=== PATIENT | female | born 1960 | race Caucasian/White ===

== ENCOUNTER → 2022-07-22 11:21 | Outpatient (BNVA) | payer OTHER, SELFPAY | PROVIDERS: Visit Provider Internal Medicine | DX: S09.90XA Unspecified injury of head, initial encounter (principal); W23.1XXA Caught, crushed, jammed, or pinched between stationary objects, initial encounter; W18.39XA Other fall on same level, initial encounter | CPT/HCPCS: 70450; 99204 ==

== ENCOUNTER 2024-01-31 15:00 | Outpatient (RCR) | payer BC, SELFPAY | END 2024-08-07 10:59 | disposition home or self-care (01) | LOC: HO.PTCHIC 15:00 | PROVIDERS: PCP Physician Assistant; Visit Provider Physician Assistant | DX: M54.41 Lumbago with sciatica, right side (principal) | CPT/HCPCS: 97014; 97110; 97140; 97161 ==

== ENCOUNTER 2024-04-16 14:13 | Outpatient (AMB) | payer OTHER, SELFPAY ==
--- NOTE | 2024-04-16 14:34 | AM.OFFWIN_ITS ---
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 Patient states she was treated in December at [facility] for this same symptoms but was unable to follow-up secondary to her work place schedule and the symptoms have recurred. Patient went to [facility] yesterday however there was not a dentist on site for evaluation. Patient denies having any fevers, chills or hyperglycemia. [facility] Social History Patient Tobacco Use Status: Never used Tobacco Review of Systems Const Denies chills and Denies fever(s) Eyes Reports no additional complaints ENT Reports mouth pain (dental pain left upper dentition) Card Reports no additional complaints Resp Reports no additional complaints GI Reports no additional complaints Reports no additional complaints Musc Reports no additional complaints Skin/Breast Reports system reviewed and no additional complaints, except as documented Neuro Reports no additional complaints Psych Reports no additional complaints Physical Exam Vital Signs: Last Vital Signs Temp 97.9 F 04/16/24 14:41 Pulse 72 04/16/24 14:41 BP 122/78 04/16/24 14:41 Pulse Ox 98 04/16/24 14:41 BMI result Body Mass Index 47.5 Patient is afebrile. Const General: cooperative, well developed, alert, awake and Physically active Nutritional Appearance: overweight Orientation/consciousness: patient oriented x3 Limitations: no limitations HEENT Head: Yes normal to inspection Ears: hearing grossly normal bilaterally, external ears normal, TM's normal bilaterally and EAC's normal Face and sinus: No normal facial exam, Yes edema (left malar region of the face; no erythema) and No fluctuance Mouth: abnormal oral mucosae (edema of the left upper gingivae, buccal surface; no edema lingual aspect), lip normal, tongue normal and no drooling Teeth and gingiva: abnormal gingiva and gingiva abnormal edematous, tender and discolored (erythematous, edematous, l. upper buccal aspect); without any purulent discharge Throat: Yes posterior oropharynx normal Neuro General: patient oriented x3 Psych Appearance: grossly normal Mental Status: mental status grossly normal Insight: Good insight present (Psych) Judgement: Good judgement present (Psych) Assessment & Plan Assessment & Plan (1) Gingivitis: Comment: Given this patient's history she likely has a deep dental abscess that has recurred and will be prescribed antibiotic therapy. Code(s): K05.10 - Chronic gingivitis, plaque induced Plan: Patient is to follow up with a dentist as soon as possible, utilize Tylenol for discomfort and clindamycin as prescribed. Medications: New clindamycin HCl 600 mg (2 x 300 mg) PO TID 60 caps 0RF Coding Level of Care Code New Pt Level 3 (41002) Diagnoses Gingivitis K05.10 Time Spent (min) 20
[2024-04-16 14:41] VITALS: BP 122/78; PULSE 72; TEMP 36.6; O2SAT 98; BMI 47.5
== END 2024-04-16 15:58 | disposition home or self-care (01) ==
PROVIDERS: PCP Physician Assistant; Visit Provider Physician Assistant
DX: K05.10 Chronic gingivitis, plaque induced (principal)
CPT/HCPCS: 99203

== ENCOUNTER 2025-03-10 06:15 | Day surgery (SDC) | payer MEDICARE, SELFPAY ==
--- OUTSIDE RECORDS SUMMARY | 2025-02-12 15:21 | XMS_ITS | Clinical Summary ---
Author Organization [employer] Address [address] [place] [address] Care Team Providers Care Brim Stretcher Name Role Phone Unavailable Primary Care Provider Unavailabl e Immunizations Immunization Administration Dates Next Due Moderna Covid-19 Vaccine 6+ Bivalent 10/19/2022 Social History Tobacco Use Types Packs/Day Years Used Date Smoking Tobacco: Never Assessed Comments Unknown Sex and Gender Information Value Date Recorded Sex Assigned at Female 08/01/2022 10:37 AM EDT Legal Sex Female 10:37 AM EDT Gender Identity Choose not to disclose 10:37 AM EDT Sexual Orientation Choose not to disclose 2021 10:37 AM EDT Plan of Treatment Health Maintenance Due Date Last Done Comments CT Colonography 1960 Colonoscopy 1960 Colorectal Cancer Screening 1960 Depression Screening 1960 FIT DNA/Cologuard 1960 FIT 1960 FOBT 1960 Sigmoidoscopy 1960 Alcohol/Substance Use Screening 1972 Tobacco Screening 1972 Pap Smear 01/10/1981 Cervical Cancer Screening 01/10/1990 HPV/Cotest 01/10/1990 Mammogram 2000 Pneumococcal Vaccine: 50+ Years (1 of 1 - PCV) 01/10/2010 Zoster Vaccines (1 of 2) 01/10/2010 COVID-19 Vaccine (5 - season) 2024 10/19/2022, 09/03/2021, 10/26/2020, Additional history exists Influenza Vaccine (#1) 2024 2, 06/17/2021, 07/08/2020, Additional history exists DTaP/Tdap/Td Vaccines (2 - Td or Tdap) 12/12/2027 12/11/2017 RSV Patients and Patients Aged 60 years or older (1 - 1-dose 75+ series) 01/10/2035 HIB Vaccines Aged Out No longer eligi ble based on patient's age to complete this topic HPV Vaccines Aged Out No longer eligi ble based on patient's age to complete this topic Hepatitis A Vaccines Aged Out No long er eligible based on patient's age to complete this topic Hepatitis B Vaccines Aged Out No long er eligible based on patient's age to complete this topic IPV Vaccines Aged Out No longer eligi ble based on patient's age to complete this topic Meningococcal Vaccine Aged Out No stacey hans eligible based on patient's age to complete this topic Pneumococcal Vaccine: Pediatrics (0 to 5 Years) and At-Risk Patients (6 to 49) Years) Aged Out No longer eligible based on patient's age to complete this topic RSV under 20 months Aged Out No longe r eligible based on patient's age to complete this topic Rotavirus Vaccines Aged Out No longer eligible based on patient's age to complete this topic
--- OUTSIDE RECORDS SUMMARY | 2025-02-12 15:21 | XMS_ITS | Encounter Summary ---
Author Organization [facility] Address [address] [place] [address] Phone Care Team Providers Care Die Out Worker Name Role Phone Rashmi Gallegos PA-C Primary Care Provider + Encounter Details Date Type Department Care Team (Late st Contact Info) Description 11/13/2024 Documentation Only [facility] [address] [place] [address] [place], [place] [address] [place] [address] Social History Tobacco Use Types Packs/Day Years Used Date Smoking Tobacco: Never Assessed Comments Unknown Sex and Gender Information Value Date Recorded Sex Assigned at Not on file Legal Sex Female 10:41 AM EST Gender Identity Not on file Sexual Orientation Not on file documented as of this encounter Plan of Treatment Upcoming Encounters Date Type Department Care Team (Late st Contact Info) Description 03/24/2025 4:00 PM EDT Office Visit [facility] [address] [place] [address] Vitaliy Perrin MD [address] [place] [address] [place] [phone] documented as of this encounter Visit Diagnoses Not on filedocumented in this encounter Care Teams Die Out Worker Relationship Specialty Start Date End Date Rashmi Gallegos PA-C [address] [place] [address] PCP - General Physician Knitted Garment Finisher 10/22/24 documented as of this encounter
--- OUTSIDE RECORDS SUMMARY | 2025-02-12 15:21 | XMS_ITS | Clinical Summary ---
Author Organization [facility] Address [address] [place] [address] Phone Care Team Providers Care Chef Broiler Or Fry Name Role Phone Rashmi Gallegos PA-C Primary Care Provider + Social History Tobacco Use Types Packs/Day Years Used Date Smoking Tobacco: Never Assessed Comments Unknown Sex and Gender Information Value Date Recorded Sex Assigned at Not on file Legal Sex Female 10:41 AM EST Gender Identity Not on file Sexual Orientation Not on file Plan of Treatment Upcoming Encounters Date Type Department Care Team (Late st Contact Info) Description 03/24/2025 4:00 PM EDT Office Visit [facility] [place], [address] [address] Vitaliy Perrin MD [address] [facility] [place] [address] Health Maintenance Due Date Last Done Comments Breast Cancer Screening 1960 Pneumococcal Vaccine: 50+ Ye ars (1 of 2 - PCV) 01/10/1979 Colorectal Cancer Screening: Annual FOBT 01/10/2009 Colorectal Cancer Screening: Colonoscopy 01/10/2009 Colorectal Cancer Screening: Sigmoidoscopy 01/10/2009 Diabetes: Hemoglobin A1C 11/11/2024 Diabetes: Ophthalmology Exam 11/11/2024 Diabetes: Pedal Pulse Checked 11/11/2024 Diabetes: Sensory Foot Exam 11/11/2024 Diabetes: Visual Foot Exam 11/11/2024 Influenza Vaccine (Season Ended) 2025 Hepatitis B Vaccine Aged Out No longe r eligible based on patient's age to complete this topic [facility] [place] [address] [facility] Care Teams Chef Broiler Or Fry Relationship Specialty Start Date End Date Rashmi Gallegos PA-C [address] [place] [address] PCP - General Physician Wax Pourer 10/22/24
--- OUTSIDE RECORDS SUMMARY | 2025-02-12 15:21 | XMS_ITS ---
Author Organization [facility] Care Team Providers Care Histology Manager Name Role Phone Thomas Steventh Unavailable Unavailable Any Pak Unavailable Unavailable Trudy Quinonez Unavailable Unavailable Allergies and adverse reactions Code CodeSystem Substance Reaction Severity StartDate Concern Status 535417923 SNOMED CT Penicillins Unknown 12/25/2020 activ e Care Team Name Role Address Phone Organization Dates Any Pak PCP [address] [facility], [place], [address], [facility] (Office): [facility] 12/25/2020 - 01/18/2021 Edith Steven [address], [address], [facility] (Office): [facility] 12/25/2020 - 01/18/2021 Trudy Quinonez [address] [facility] [address] [place] [address], [address], [facility] (Office): [facility] 12/25/2020 - 01/18/2021 Immunizations Immunization Status Vaccine Details Vaccine Code CodeSystem Jamison e Notes Influenza completed Influenza, split virus, trivalent, injectable, contains preservative 141 CVX created date: 12/28/2020 administered date: 09/13/2017 SARS-COV-2 (COVID-19) completed SARS-COV-2 (COVID-19) vaccine, mRNA, spike protein, LNP, preservative free, lorie-sucrose, 30 mcg/0.3 mL dose Step 2 of Multi-step with next step required 309 CVX created date: 01/04/2021 administered date: 10/26/2020 SARS-COV-2 (COVID-19) completed SARS-COV-2 (COVID-19) vaccine, mRNA, spike protein, LNP, preservative free, lorie-sucrose, 30 mcg/0.3 mL dose Step 1 of Multi-step with next step required 309 CVX created date: 12/28/2020 administered date: 09/28/2020 Mental Status Section Date Assessment Total Score Description 01/18/2021 BIMS 15 cognitively int act CAM 0 No delirium ind icated PHQ-9 03 minimal depress ion 12/31/2020 BIMS 15 cognitively int act CAM 0 No delirium ind icated PHQ-9 03 minimal depress ion Problems Problem # Description Date of onset Resolved Date Code CodeSystem Concern Status 1 DIFFICULTY IN WALKING, NOT ELSEWHERE CLASSIFIED 12/25/[address] active 2 DORSALGIA, UNSPECIFIED 12/25/[address] active 3 ESSENTIAL (PRIMARY) HYPERTENSION 12/25/[address] active 4 HYPERLIPIDEMIA, UNSPECIFIED 12/25/[address] active 5 LOW BACK PAIN 12/25/[address] act sanju 6 MUSCLE WEAKNESS (GENERALIZED) 12/25/[address] active 7 OTHER HYPERLIPIDEMIA 12/25/[address] active 8 OTHER SYMPTOMS AND SIGNS INVOLVING THE MUSCULOSKELETAL SYSTEM 12/25/[address] active 9 SCIATICA, UNSPECIFIED SIDE 12/25/[address] active 10 SPINAL STENOSIS, SITE UNSPECIFIED 12/25/[address] active 11 TYPE 2 DIABETES MELLITUS WITHOUT COMPLICATIONS 12/25/[address] active Reason for Referral No Reasons for Referral Entered Social History Social History Observation Description Start Date End Date Code Code System Current Smoking Status Tobacco smoking consumption unknown 020079215 SNOMED CT Sex Assigned At Female 1960 [address]92-5 [facility] Gender Identity Vital Signs Code Code System Vitals Name Values and Units Timing Information 2339-0 [facility] Blood Sugar Gfkmm=658.0 Units=mg/dL 01/18/2021 58271-1 [facility] Pain Level Value=0.0 01/18/2021 9279-1 [facility] Respiratory Rate Value=20.0 Units=/m in 01/18/2021 8462-4 [facility] Blood Pressure-Diastolic Value=64 Un its=mmHg 01/18/2021 8480-6 [facility] Blood Pressure-Systolic Moala=295 Un its=mmHg 01/18/2021 8310-5 [facility] Body Temperature Value=96.1 Units=?? F 01/18/2021 8867-4 [facility] Heart rate Value=81.0 Units=/min 46933-5 [facility] O2 % BldC Oximetry Value=95.0 Units= % 01/18/2021 51906-3 [facility] Weight Aletw=324.2 Units=Lbs 8302-2 [facility] Height Value=66.0 Units=Inches 12/25/2020
--- OUTSIDE RECORDS SUMMARY | 2025-02-12 15:21 | XMS_ITS | Clinical Summary ---
Author Organization [facility] Address [address] [place] [address] Care Team Providers Care Solar Installation Helper Name Role Phone Jade Basilio MD Primary Care Provider Social History Tobacco Use Types Packs/Day Years Used Date Smoking Tobacco: Never Assessed Sex and Gender Information Value Date Recorded Sex Assigned at Not on file Gender Identity Not on file Sexual Orientation Not on file Plan of Treatment Health Maintenance Due Date Last Done Comments Hepatitis C Screening 1960 COVID-19 Vaccine (#1) 1960 Depression Screening 1972 Preventative Health Evaluation 01/10/1978 DTap / Tdap / Td (1 - Tdap) 01/10/1979 Cervical Cancer Screening (P ap Smear) 01/10/1981 Colon Cancer Screening (Colonoscopy) 01/10/2005 Breast Cancer Screening (Mammogram) 01/10/2010 Shingrix-Zoster Vaccine (1 of 2) 01/10/2010 Influenza Vaccine (#1) 2024 Fall Risk Assessment 01/10/2025 Osteoporosis Screening (DEXA Scan) 01/10/2025 Pneumococcal Vaccine (1 of 1 - PCV) 01/10/2025 RSV Adult > 60+ Yrs or Pregn ant (1 - 1-dose 75+ series) 01/10/2035 Hepatitis B Vaccines Aged Out No long er eligible based on patient's age to complete this topic Pneumococcal Vaccine Aged Out No long er eligible based on patient's age to complete this topic RSV Ped < 20 months Aged Out No longe r eligible based on patient's age to complete this topic Care Teams Solar Installation Helper Relationship Specialty Start Date End Date Jade Basilio MD [address] [place] [address] PCP - General Internal Medicine 03/29/21
--- OUTSIDE RECORDS SUMMARY | 2025-02-12 15:21 | XMS_ITS | Patient Health Record ---
Author Organization [facility] Address [address] [place] [address] Care Team Providers Care Logistics Coordinator Name Role Phone Elio Bustos PA-C Primary Care Provider Jarrett Mclaughlin Unavailable [phone] Allergies Allergen (clinical drug ingredient) Drug/Non Drug Allergy documented on EMR Reaction Allergy Type Onset Date Status Penicillin Unknown Drug Allergy Active losartan Losartan Unknown Drug Allergy Active lisinopril Lisinopril Unknown Drug Allergy Activ e Reason For Referral No Information Medications Medication SIG (Take, Route, Frequency, Duration) Notes Start Date End Date Status Pregabalin 75 MG TAKE 1 CAPSULE BY MO UTH TWICE DAILY Oral for 90 Active metFORMIN HCl 1000 MG TAKE 1 TABLET BY M OUTH WITH A MEAL TWICE DAILY Oral for 90 E1140,Unavail able Active Mounjaro 7.5 MG/0.5ML INJECT 7.5 MG SUBCUTANEOUSLY ONCE EVERY 7 DAYS Subcutaneous for 28 E1142,Unavail able Active Metoprolol Succinate ER 25 MG Oral for 90 Active Albuterol Sulfate HFA 108 (90 Base) MCG/ACT INHALE 2 PUFFS BY MOUTH EVERY 4 HOURS NEEDED Inhalation for 17 Active HumaLOG Mix 75/25 KwikPen (75-25) 100 UNIT/ML INJECT 30 UNITS SUBCUTANEOUSLY IN THE MORNING AND 20 UNITS SUBCUTANEOUSLY IN THE EVENING BEFORE MEALS Subcutaneous for 90 E1142,Unavail able Active Rosuvastatin Calcium 10 MG TAKE 1 TABLET BY MOUTH ONCE DAILY Oral for 90 Active Levothyroxine Sodium 112 MCG TAKE 1 TABLET BY MOUTH IN THE MORNING ON AN EMPTY STOMACH Oral for 90 E039,Unavaila ble Active Immunizations Vaccine Route Administration Date Status Comme nts Influenza Unknown 07/23/2024 Administered Social History Tobacco Use: Social History Observation Description Date Details (start date - stop date) Never Smoker NA - NA Tobacco Use/Smoking Question Answer Notes Patient is a nonsmoker Alcohol Screen Question Answer Notes Did you have a drink containing alcohol in the p ast year? No Points 0 Interpretation Negative Section Notes: Nonsmoker; no sig alcohol Problems Problem Type SNOMED Code ICD Code Onset Dates Problem Status W/U Status Risk Notes Problem Colon cancer screening (Z12.11) Active confirmed Problem Pre-procedure evaluation check (574859212) Encounter for other preprocedural examination (Z01.818) Active confirmed Vital Signs Temperature 97.1 degrees Fahrenheit 11/15/2024 Blood pressure diastolic 00 mm Hg 11/15/2024 Height 5 ft 5 in in 11/15/2024 Blood pressure systolic 000 mm Hg 11/15/2024 Weight 300 lb 4 oz lbs 11/15/2024 BMI 49.96 kg/m2 11/15/2024 Encounters Encounter Location Date Provider Diagnosis [facility] [address] [place] [address] 11/15/2024 Jarrett Javier Colon cancer screeni ng Z12.11 and Encounter for other preprocedural examination Z01.818 Assessments Encounter Date Diagnosis (ICD Code) Assessment Notes Treatment Notes Treatment Clinical Notes Section Notes 11/15/2024 Colon cancer screening (ICD-10 - Z12.11) DO NOT TAKE THE MOUNJARO FOR AT LEAST 7 DAYS BEFORE THE COLONOSCOPY DO NOT TAKE THE METFORMIN THE NIGHT BEFORE OR ON THE MORNING OF THE COLONOSCOPY STOP ASPIRIN AND ALEVE FOR 1 WEEK BEFORE THE COLONOSCOPY DO NOT TAKE FUROSEMIDE THE DAY BEFORE NOR ON THE DAY OF THE COLONOSCOPY ASK DR. BIRD HOW TO ADJUST INSULIN FOR THE DAY BEFORE AND ON THE DAY OF THE PROCEDURES 11/15/2024 Encounter for other preprocedural examination (ICD-10 - Z01.818) Plan Of Treatment Future Test Test Name Order Date COLONOSCOPY 11/15/2024 Next Appt Details Provider Name:Jarrett Hamlin Javier , 03/10/2025 07:30:00 AM, [address] [facility] , [place], [id number], Insurance Providers Payer Name Payer Address Payer Phone Subscriber Number Group Number Insured Name Patient Relationship to Insured Coverage Start Date Coverage End Date [facility] [address] [place] [address] [phone] [id number] LORIN JOSEPH Self - patient is the insured Medical (General) History Medical History History ICD Code Seasonal allergies Asthma Hyperlipidemia IDDM Colonoscopy age 50 with removal of 1smal l polyp Denies IA,CVA,Renal disease HTN Sciatica Surgical History Surgery Date(Month/Year) [facility] Tonsils/adenoids removed Anal fissures and hemorrhoidectomy 2013 Trigger point injection Back surgery [facility] 2020 Blepharoplasty 09/2022 Pilonidal cyst
--- OUTSIDE RECORDS SUMMARY | 2025-02-12 15:21 | XMS_ITS ---
Author Organization [facility] Address [address] [place] [address] Care Team Providers Care Javascript Engineer Name Role Phone Elio Bustos PA-C Primary Care Provider Jarrett Mclaughlin Unavailable [phone] Allergies Allergen (clinical drug ingredient) Drug/Non Drug Allergy documented on EMR Reaction Allergy Type Onset Date Status Penicillin Unknown Drug Allergy Active losartan Losartan Unknown Drug Allergy Active lisinopril Lisinopril Unknown Drug Allergy Activ e REASON FOR VISIT Patient presents today for a colon screening Medications Medication SIG (Take, Route, Frequency, Duration) Notes Start Date End Date Status Metoprolol Succinate ER 25 MG Oral for [...] STOMACH Oral for 90 E039,Unavaila ble Active Pregabalin 75 MG TAKE 1 CAPSULE BY MO UTH TWICE DAILY Oral for 90 Active metFORMIN HCl 1000 MG TAKE 1 TABLET BY M OUTH WITH A MEAL TWICE DAILY Oral for 90 E1140,Unavail able Active Mounjaro 7.5 MG/0.5ML INJECT 7.5 MG SUBCUTANEOUSLY ONCE EVERY 7 DAYS Subcutaneous for 28 E1142,Unavail able Active Social History Tobacco Use: Social History Observation [...] (Z12.11) Active confirmed Problem Pre-procedure evaluation check ([id number]) Encounter for other preprocedural examination (Z01.818) Active confirmed Vital Signs Temperature 97.1 degrees Fahrenheit 11/15/19 25 Blood pressure systolic 000 mm Hg 11/15/19 25 Blood pressure diastolic 00 mm Hg 025 Height 5 ft 5 in in 11/15/2024 Weight 300 lb 4 oz lbs 11/15/2024 BMI 49.96 kg/m2 11/15/2024 Encounters Encounter Location Date Provider Diagnosis [facility] [address] [place] [address] 11/15/2024 Jarrett Herrera Colon cancer screeni ng Z12.11 and Encounter [...] examination (ICD-10 - Z01.818) Plan Of Treatment Treatment Notes Assessment Notes Colon cancer screening DO NOT TAKE THE MOUNJARO FOR AT [...] AND ON THE DAY OF THE PROCEDURES Future Test Test Name Order Date COLONOSCOPY 11/15/2024 Next Appt Details Follow Up: prn, Reason: Provider Name:Jarrett Hamlin Javier , 03/10/2025 07:30:00 AM, [address] [place] [address] , [place], [place], [id number], Progress Notes * BARRETT JOSEPHEDOB:1959 (64 yo F)Acc No.[id number]:11/15/2024 Progress Notes Patient:?LORIN JOSEPH Provider:?Jarrett Herrera MD :1960???Age:64 Y???Sex:Female D ate:11/15/2024 Address:[address] [place], [place] [id number] Pcp:Elio Bustos PA-C Subjective: * Chief Complaints: * ???Patient presents today fo r a colon screening * Medical History:? * Surgical History:?MOIZ CCY To nsils/adenoids removed Anal fissures and hemorrhoidectomy 2013 Trigger point injection Back surgery [facility] 2020 Blepharoplasty 09/2022 Pilonidal cyst * Hospitalization/Major Diagno stic Procedure:?No Hospitalization History. * Family History:?Father: dece ased, Colon cancer at approx age 70, diagnosed with Colon cancer, Heart disease.?Mother: alive.? Patient has no family history on mother side. * Social History:?Tobacco Use:?Tobacco Use/Smoking?Patient is a?nonsmoker.?Drugs/Alcohol:?Alcohol Screen?Did you have a drink containing alcohol in the past year??No,?Points?0,?Interpretation?Negative.?Miscellaneous:?Marital status: Single. 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 ???Nonsmoker; no sig alcohol. * Medications:?TakingMetoprolo l Succinate ER 25 MG Tablet Extended Release 24 Hour Oral Albuterol Sulfate HFA 108 (90 Base) MCG/ACT Aerosol Solution INHALE 2 PUFFS BY MOUTH EVERY 4 HOURS NEEDED Inhalation Mounjaro 7.5 MG/0.5ML Solution Auto-injector INJECT 7.5 MG SUBCUTANEOUSLY ONCE EVERY 7 DAYS Subcutaneous , Notes to Pharmacist: [id number],UnavailablePregabalin 75 MG Capsule TAKE 1 CAPSULE BY MOUTH TWICE DAILY Oral metFORMIN HCl 1000 MG Tablet TAKE 1 TABLET BY MOUTH WITH A MEAL TWICE DAILY Oral , Notes to Pharmacist: [id number],UnavailableRosuvastatin Calcium 10 MG Tablet TAKE 1 TABLET BY MOUTH ONCE DAILY Oral Levothyroxine Sodium 112 MCG Tablet TAKE 1 TABLET BY MOUTH IN THE MORNING ON AN EMPTY STOMACH Oral , Notes to Pharmacist: E039,UnavailableHumaLOG Mix 75/25 KwikPen (75-25) 100 UNIT/ML Suspension Pen- injector INJECT 30 UNITS SUBCUTANEOUSLY IN THE MORNING AND 20 UNITS SUBCUTANEOUSLY IN THE EVENING BEFORE MEALS Subcutaneous , Notes to Pharmacist: [id number],UnavailableMedication List reviewed and reconciled with the patientTaking Metoprolol Succinate ER 25 MG Tablet Extended Release 24 Hour Oral Taking Albuterol Sulfate HFA 108 (90 Base) MCG/ACT Aerosol Solution INHALE 2 PUFFS BY MOUTH EVERY 4 HOURS NEEDED Inhalation Taking Mounjaro 7.5 MG/0.5ML Solution Auto-injector INJECT 7.5 MG SUBCUTANEOUSLY ONCE EVERY 7 DAYS Subcutaneous , Notes to Pharmacist: [id number],UnavailableTaking Pregabalin 75 MG Capsule TAKE 1 CAPSULE BY MOUTH TWICE DAILY Oral Taking metFORMIN HCl 1000 MG Tablet TAKE 1 TABLET BY MOUTH WITH A MEAL TWICE DAILY Oral , Notes to Pharmacist: [id number],UnavailableTaking Rosuvastatin Calcium 10 MG Tablet TAKE 1 TABLET BY MOUTH ONCE DAILY Oral Taking Levothyroxine Sodium 112 MCG Tablet TAKE 1 TABLET BY MOUTH IN THE MORNING ON AN EMPTY STOMACH Oral , Notes to Pharmacist: E039,UnavailableTaking HumaLOG Mix 75/25 KwikPen (75-25) 100 UNIT/ML Suspension Pen-injector INJECT 30 UNITS SUBCUTANEOUSLY IN THE MORNING AND 20 UNITS SUBCUTANEOUSLY IN THE EVENING BEFORE MEALS Subcutaneous , Notes to Pharmacist: [id number],UnavailableMedication List reviewed and reconciled with the patient * Allergies:?LosartanLisinopri lPenicillinyes[Allergies Verified] Objective: * Vitals:?Wt: 300 lb 4 oz, Ht: 5 ft 5 in, BMI:49.96Index, BP: 000/00 mm Hg, Temp: 97.1. Assessment: * Assessment: 1.?Encounter for other prepr ocedural examination - Z01.818 (Primary)???2.?Colon cancer screening - Z12.11??? Plan: * Treatment: Notes: DO NOT TAKE THE MOUNJARO FOR AT [...] BEFORE AND ON THE DAY OF THE PROCEDURES? * Procedure Codes:?3017F COLOR ECTAL CA SCREEN DOC [id number] TOBACCO [id number] BP SCR NOT PRFRM REC REASON NOS * Preventive Medicine:? ??Counseling:?Care goal follow-up plan:?Above Normal BMI Follow-up?Giving encouragement to exercise,?BMI management provided?Yes.? * Follow Up:?prn * * Sign off status: Completed true * Provider:?Jarrett Herrera MD Date:? 025 Generated for Sofia rae/Wanda/Toryitting on:?02/12/2025 03:21 PM EDT
--- OUTSIDE RECORDS SUMMARY | 2025-02-12 15:21 | XMS_ITS | Encounter Summary ---
Author Organization [facility] Address [address] [place] [address] Phone Care Team Providers Care Naval Architect Specialist Name Role Phone Rashmi Gallegos PA-C Primary Care Provider + Encounter Details Date Type Department Care Team (Late st Contact Info) Description 10/22/2024 Documentation Only [facility] [address] [place] [address] [place], [place] [address] [place] [address] Social History Tobacco Use Types [...] Visit [facility] [address] [place] [address] Vitaliy Perrin MD [address] [place] [address] [place] [id number] documented as of this encounter Visit Diagnoses Not on filedocumented in this encounter Care Teams Naval Architect Specialist Relationship Specialty Start Date End Date Rashmi Gallegos PA-C [address] [place] [address] PCP - General Physician Cleaners 10/22/24 documented as of this encounter
[2025-03-06 16:29] VITALS: BMI 47.6
--- NOTE | 2025-03-07 09:20 | HO.ANESPROP2 ---
Documented by User: Daniela Og NP 03/07/25 09:20 HPI - Anesthesia Eval Consult details Narrative: 65yo F for Colonoscopy PMFSH Active Problems Active Problems: All Active Problems Gingivitis (Acute) Fall against object (Acute ~07/22/22) Past Medical History Medical History Back pain Hypothyroidism Diabetes Environmental allergies Seasonal allergies Asthma HLD (hyperlipidemia) HTN (hypertension) Surgical History Surgical History Hx of adenoidectomy Hx of cholecystectomy (~1977) History of surgical removal of pilonidal cyst Hx of tonsillectomy History of spinal surgery Hx of hysterectomy Hx of colonoscopy Social History Social History Are you a primary primary care physician to a significant other at home: No Do you presently have visiting nurse or other home services: No Patient Tobacco Use Status: Never used Tobacco Use of substances other than those prescribed or required for medical reasons: No Have you been hit, kicked, punched, or otherwise hurt by someone within the past year? If so, by whom?: No Are you DNR?: No Advance Directives: No (has one will look for it and bring) Advance Directives Information Provided: Yes Advance Directives on File: No Poor oral hygiene: Yes (some missing upper teeth) Meds Allergies Allergy/AdvReac Type Severity Reaction Status Date / Time irbesartan Allergy Severe Cough Verified 03/06/25 16:21 lisinopril Allergy Severe Cough Verified 03/06/25 16:21 Penicillins Allergy Severe Hives Verified 03/06/25 16:21 amoxicillin Allergy Intermediate Hives Verified 03/06/25 16:21 Home Medications ?Medication ?Instructions ?Recorded ?Confirmed ?Last Taken ?Type insulin lispro protamine-lispro 30 unit subcut DAILY@0730 04/16/24 03/06/25 03/10/25 History 100 unit/mL (75-25) subcutaneous pen (Humalog Mix 75-25 KwikPen) levothyroxine 112 mcg tablet 112 mcg PO DAILY 04/16/24 03/06/25 03/10/25 History metformin 1,000 mg tablet 1,000 mg PO BID 04/16/24 03/06/25 Unknown History pregabalin 75 mg capsule 75 mg PO BID 04/16/24 03/06/25 03/10/25 History rosuvastatin 10 mg tablet 10 mg PO BEDTIME 04/16/24 03/06/25 Unknown History albuterol sulfate 90 mcg/actuation 2 puff inhalation Q4H PRN 03/06/25 03/06/25 03/10/25 History aerosol inhaler Shortness Of Breath Or Wheezing amlodipine 5 mg tablet 5 mg PO DAILY 03/06/25 03/06/25 03/10/25 History cholecalciferol (vitamin D3) 125 125 mcg PO DAILY 03/06/25 03/06/25 Unknown History mcg (5,000 unit) tablet (Vitamin D3) insulin lispro protamine-lispro 20 unit subcut QPM 03/06/25 03/06/25 Unknown History 100 unit/mL (75-25) subcutaneous pen (Humalog Mix 75-25 KwikPen) metoprolol succinate 50 mg 50 mg PO BID 03/06/25 03/06/25 03/10/25 History tablet,extended release 24 hr vitamin B complex 1 cap PO DAILY 03/06/25 03/06/25 Unknown History aspirin 81 mg tablet,delayed mg 03/10/25 03/10/25 03/02/25 History release budesonide-formoterol HFA 160 2 puff inhalation BID 03/10/25 03/10/25 03/10/25 History mcg-4.5 mcg/actuation aerosol inhaler (Symbicort) tirzepatide 5 mg/0.5 mL 5 mg subcut QWEEK 03/10/25 03/10/25 02/13/25 History subcutaneous pen injector (Mounjaro) Exam Height,Weight and Vital Signs: Height 5 ft 6 in Weight 133.81 kg Assessment and Plan Assessment Anesthesia Assessment: Chart Reviewed Documented by User: Lainey Raygoza MD 03/10/25 07:41 [facility] Past Medical History Medical History Back pain Hypothyroidism Diabetes Environmental allergies Seasonal allergies Asthma HLD (hyperlipidemia) HTN (hypertension) Family History Family history of problems with anesthesia: No Surgical History Surgical History Hx of adenoidectomy Hx of cholecystectomy (~1977) History of surgical removal of pilonidal cyst Hx of tonsillectomy History of spinal surgery Hx of hysterectomy Hx of colonoscopy History of Problems with Anesthesia: No Social History Social History Are you a primary primary care physician to a significant other at home: No Do you presently have visiting nurse or other home services: No Patient Tobacco Use Status: Never used Tobacco Use of substances other than those prescribed or required for medical reasons: No Have you been hit, kicked, punched, or otherwise hurt by someone within the past year? If so, by whom?: No Are you DNR?: No Advance Directives: No (has one will look for it and bring) Advance Directives Information Provided: Yes Advance Directives on File: No Poor oral hygiene: Yes (some missing upper teeth) Meds Allergies Allergy/AdvReac Type Severity Reaction Status Date / Time irbesartan Allergy Severe Cough Verified 03/06/25 16:21 lisinopril Allergy Severe Cough Verified 03/06/25 16:21 Penicillins Allergy Severe Hives Verified 03/06/25 16:21 amoxicillin Allergy Intermediate Hives Verified 03/06/25 16:21 Home Medications ?Medication ?Instructions ?Recorded ?Confirmed ?Last Taken ?Type insulin lispro protamine-lispro 30 unit subcut DAILY@0730 04/16/24 03/06/25 03/10/25 History 100 unit/mL (75-25) subcutaneous pen (Humalog Mix 75-25 KwikPen) levothyroxine 112 mcg tablet 112 mcg PO DAILY 04/16/24 03/06/25 03/10/25 History metformin 1,000 mg tablet 1,000 mg PO BID 04/16/24 03/06/25 Unknown History pregabalin 75 mg capsule 75 mg PO BID 04/16/24 03/06/25 03/10/25 History rosuvastatin 10 mg tablet 10 mg PO BEDTIME 04/16/24 03/06/25 Unknown History albuterol sulfate 90 mcg/actuation 2 puff inhalation Q4H PRN 03/06/25 03/06/25 03/10/25 History aerosol inhaler Shortness Of Breath Or Wheezing amlodipine 5 mg tablet 5 mg PO DAILY 03/06/25 03/06/25 03/10/25 History cholecalciferol (vitamin D3) 125 125 mcg PO DAILY 03/06/25 03/06/25 Unknown History mcg (5,000 unit) tablet (Vitamin D3) insulin lispro protamine-lispro 20 unit subcut QPM 03/06/25 03/06/25 Unknown History 100 unit/mL (75-25) subcutaneous pen (Humalog Mix 75-25 KwikPen) metoprolol succinate 50 mg 50 mg PO BID 03/06/25 03/06/25 03/10/25 History tablet,extended release 24 hr vitamin B complex 1 cap PO DAILY 03/06/25 03/06/25 Unknown History aspirin 81 mg tablet,delayed mg 03/10/25 03/10/25 03/02/25 History release budesonide-formoterol HFA 160 2 puff inhalation BID 03/10/25 03/10/25 03/10/25 History mcg-4.5 mcg/actuation aerosol inhaler (Symbicort) tirzepatide 5 mg/0.5 mL 5 mg subcut QWEEK 03/10/25 03/10/25 02/13/25 History subcutaneous pen injector (Rachel) Exam Airway Mallampati Class: II TM Dist: >3cm Neck ROM: Limited Heart: rrr Lungs: cta Assessment and Plan Assessment Anesthesia Assessment: Anesthesia Plan Discussed Final Anesthetic Review Family History of Problems with Anesthesia: No History of Problems with Anesthesia: No NPO: Yes ASA Class: III Final Preanesthetic Review: No Changes in Pt Med Stat, Meds/Allgs Chart Reviewed, Consent Obtained/Reviewed and Anes Risks/Benef Reviewed Patient Risk: Intermediate Procedure Risk: Low Anesthetic Plan Anesthetic Plan: MAC: Disposition: Standard PACU
[2025-03-10 06:26] VITALS: BP 153/67; PULSE 64; RESP 18; TEMP 36.9; BMI 49.4
[2025-03-10 06:50] LABS: Glucose, Whole Blood 285 mg/dL (60-115)
[2025-03-10] MEDS: Lactated Ringers 1,000 ML 100 ML IVCONT (06:55)
[2025-03-10 08:35] VITALS: BP 114/50; PULSE 59; RESP 16; TEMP 36.2; O2SAT 95
[2025-03-10 08:40] LABS: Glucose, Whole Blood 265 mg/dL (60-115)
--- NOTE | 2025-03-10 08:42 | P.BOP_ITS ---
Brief Operative Note Date of Service: 03/10/25 Pre-op diagnosis: Screening Post-op diagnosis: other (Polyp) Procedure: Colonoscopy to the cecum with bx/removal of polyp Surgeon: Jarrett Herrera MD Anesthesia: MAC Was an Analog Circuit Designer used for this Procedure?: No Estimated blood loss (mL): 2.0 Pathology: other (A. Polyp at 20cm) Condition: stable Disposition: PACU
[2025-03-10 08:50] VITALS: PULSE 58; RESP 16; TEMP 36.2; O2SAT 95
--- NOTE | 2025-03-10 08:52 | OP_ITS ---
DATE OF SERVICE: 03/10/2025 SURGEON: Jarrett Herrera MD INDICATIONS: The patient presents for evaluation of colorectal cancer screening. Full consent was obtained from her for this, including risks of bleeding and perforation. PREOPERATIVE DIAGNOSIS: Colorectal cancer screening. POSTOPERATIVE DIAGNOSIS: PROCEDURE PERFORMED: Colonoscopy to the cecum with biopsy and removal of polyp. ESTIMATED BLOOD LOSS: COMPLICATIONS: ANESTHESIA: Monitored anesthesia care. ASSISTANTS: SPECIMENS: POSTOPERATIVE DIAGNOSES: Colorectal cancer screening, small colon polyp, diverticulosis, and internal hemorrhoids. DESCRIPTION OF PROCEDURE: The patient was placed in the left lateral decubitus position. The digital rectal exam revealed no abnormalities. The Olympus video pediatric colonoscope was entered into the rectum and advanced easily to the cecum. Once in the cecum, I did identify normal-appearing cecal pouch with appendiceal orifice and a normal-appearing ileocecal valve. The entire cecum and ileocecal valve appeared normal. The scope was slowly withdrawn assessing all mucosal surfaces carefully. Preparation was excellent. At 20 cm was a flat 3 or 4 mm polyp, which was biopsied and completely removed with cold biopsy forceps. I did not visualize any other polyps, colitis, nor angiodysplasia. There was a mild amount of sigmoid diverticulosis. In the rectum, scope was retroflexed visualizing internal hemorrhoids but no other pathology. The rectal mucosa appeared normal. The scope was straightened and withdrawn from the patient. She tolerated the procedure well and was returned to recovery area in stable condition. IMPRESSION: 1. colon polyp 2. Diverticulosis. 3. Internal hemorrhoids. PLAN: The results of biopsy will be checked. If the polyp is a tubular adenoma, I would recommend a followup colonoscopy in 5 years. If it is only hyperplastic, I would recommend a followup coloscopy in 10 years. She was advised not to use any aspirin or NSAIDs for 1 week. MD ALEENA Miller/[place] / [phone] [place]
== END 2025-03-10 09:27 | disposition home or self-care (01) ==
PROVIDERS: PCP Physician Assistant; Visit Provider Internal Medicine
PROC: 0DJD8ZZ Inspection of Lower Intestinal Tract, Via Natural or Artificial Opening Endoscopic (ICD-10-PCS; CPT 45378; principal; 2025-03-10 07:30)
DX: Z12.11 Encounter for screening for malignant neoplasm of colon (principal); Z80.0 Family history of malignant neoplasm of digestive organs; K63.5 Polyp of colon; K57.30 Diverticulosis of large intestine without perforation or abscess without bleeding; K64.8 Other hemorrhoids; I10 Essential (primary) hypertension; E78.5 Hyperlipidemia, unspecified; M54.30 Sciatica, unspecified side; J45.909 Unspecified asthma, uncomplicated; E11.9 Type 2 diabetes mellitus without complications; Z79.4 Long term (current) use of insulin; Z79.82 Long term (current) use of aspirin; Z79.84 Long term (current) use of oral hypoglycemic drugs; Z79.85 Long-term (current) use of injectable non-insulin antidiabetic drugs; Z79.899 Other long term (current) drug therapy; Z98.890 Other specified postprocedural states; Z88.0 Allergy status to penicillin; Z88.8 Allergy status to other drugs, medicaments and biological substances
CPT/HCPCS: 45380; 82947; 88305; J2704